=== PATIENT | female | born 1955 | race Caucasian/White ===

== ENCOUNTER → 2020-04-26 | Outpatient (CLI) | payer MEDICARE ==
--- NOTE | 2020-04-28 10:31 | MM ---
Reason for exam: screening (asymptomatic). Last mammogram was performed 5 years and 7 months ago. History: Patient is postmenopausal. Family history of breast cancer in sister. Physical Findings: A clinical breast exam by your physician is recommended on an annual basis and results should be correlated with mammographic findings. MG Screening Mammo w CAD Bilateral CC and MLO view(s) were taken. Prior study comparison: September 10, 2014, mammogram, performed at [facility]. There are scattered fibroglandular densities. There are benign appearing round calcifications in the right breast. There is chronic nodularity in the left breast upper outer quadrant. There is no discrete abnormality. ASSESSMENT: Benign, BI-RAD 2 RECOMMENDATION: Routine screening mammogram of both breasts in 1 year.
== END | disposition home or self-care (01) ==
LOC: RADMAMWWP 14:42
PROVIDERS: ATTEND Family Medicine
DX: Z12.31 Encounter for screening mammogram for malignant neoplasm of breast (principal)
CPT/HCPCS: 77067

== ENCOUNTER → 2022-10-24 | Outpatient (CLI) | payer MEDICARE ==
--- NOTE | 2022-10-25 08:27 | MM ---
Reason for Exam: Screening (asymptomatic). Last mammogram was performed 2 year(s) and 6 month(s) ago. Patient History: Menarche at age 9. First Full-Term at age 17. Hysterectomy at age 59. Postmenopausal. Sister had breast cancer. Risk Values: Cristal 5 year model risk: 3.5%. NCI Lifetime model risk: 11.5%. Prior Study Comparison: 09/10/2014 Screening Mammogram, [facility]. 04/26/2020 Bilateral Screening Mammogram, [facility]. Tissue Density: The breast tissue is heterogeneously dense. This may lower the sensitivity of mammography. Findings: Analyzed By CAD. Benign-appearing bilateral axillary lymph nodes are redemonstrated. Stable lobulated circumscribed 11 mm mass towards the left axilla. Occasional tiny benign-appearing round and linear calcification in the right breast is redemonstrated. There is no suspicious group of microcalcifications or new suspicious mass in either breast. Overall Assessment: Benign, BI-RAD 2 Management: Screening Mammogram of both breasts in 1 year. A clinical breast exam by your physician is recommended on an annual basis and results should be correlated with mammographic findings. Manage clinically occasional left-sided breast pain. Electronically signed and approved by: Jonny Marks M.D.
== END | disposition home or self-care (01) ==
LOC: RADMAMWWP 13:12
PROVIDERS: ATTEND Family Medicine
DX: Z12.31 Encounter for screening mammogram for malignant neoplasm of breast (principal); Z78.0 Asymptomatic menopausal state; Z80.3 Family history of malignant neoplasm of breast
CPT/HCPCS: 77063; 77067

== ENCOUNTER → 2024-01-09 | Outpatient (CLI) | payer MEDICARE ==
--- NOTE | 2024-01-17 20:09 | MM ---
Reason for Exam: Screening (asymptomatic). Last mammogram was performed 1 year(s) and 3 month(s) ago. Patient History: Menarche at age 9. First Full-Term at age 17. Hysterectomy at age 59. Postmenopausal. Sister had breast cancer. Risk Values: Cristal 5 year model risk: 3.5%. NCI Lifetime model risk: 10.6%. Prior Study Comparison: 09/10/2014 Screening Mammogram, [facility]. 04/26/2020 Bilateral Screening Mammogram, [facility]. 10/24/2022 Bilateral MG 3D screening mammo w/cad, [facility]. Tissue Density: There are scattered areas of fibroglandular density. Findings: Analyzed By CAD. Chronic nodularity left breast. There is no suspicious group of microcalcifications or new suspicious mass in either breast. Overall Assessment: Benign, BI-RAD 2 Management: Screening Mammogram of both breasts in 1 year. See note below in regards to the patient's increased 5 year Cristal score. Patient should continue monthly self-breast exams. A clinical breast exam by your physician is recommended on an annual basis. This exam should not preclude additional follow-up of suspicious palpable abnormalities. Note on Cristal scores and lifetime risk: 1. A Cristal score greater than 3% is considered moderate risk. If this is the case, consider specialist referral to assess eligibility for a risk reducing agent. 2. If overall lifetime risk for the development of breast cancer is 20% or higher, the patient may qualify for future screening with alternating mammogram and breast MRI. Electronically signed and approved by: Bobby Trevizo M.D. Radiologist
== END | disposition home or self-care (01) ==
LOC: RADMAMWWP 06:58
PROVIDERS: ATTEND Family Medicine
DX: Z12.31 Encounter for screening mammogram for malignant neoplasm of breast (principal); Z80.3 Family history of malignant neoplasm of breast; Z78.0 Asymptomatic menopausal state
CPT/HCPCS: 77063; 77067

== ENCOUNTER → 2024-04-14 | Day surgery (SDC) | payer MEDICARE ==
[~2024-04-14] MED LIST: ALPRAZolam 0.25 MG TAB PO PRN; ALPRAZolam 0.5 MG TAB PO PRN; NITROGLYCERIN SL TABS 0.4 MG TAB SUBLINGUAL PRN; RX INFO: IV CONTRAST WAS GIVEN 1 EACH MISC MISCELLANE PRN; SODIUM CHLORIDE 0.9% 1,000 ML IV SCH
[2024-04-14] MEDS: IV FLUID CONTINUATION 1,000 ML IV ONE (06:20)
[2024-04-14] MEDS: SODIUM CHLORIDE 0.9% 1,000 ML in EMPTY BAG 1 BAG IV SCH (06:20)
[2024-04-14 06:32] LABS: Glucose,Whole Blood 195 mg/dL (70-110)
[2024-04-14 06:33] LABS: HCT 37.6 % (34.0-46.0); HGB 12.2 gm/dL (11.4-16.0); MCH 30.5 pg (25.0-35.0); MCHC 32.5 g/dL (31.0-37.0); MCV 93.8 fL (80.0-100.0); Mean Platelet Volume 7.7; Platelet Count 312 k/uL (150-450); RBC 4.01 m/uL (3.80-5.40); RDW 13.1 % (11.5-15.5); WBC 10.3 k/uL (3.8-10.6)
[2024-04-14] MEDS: ASPIRIN 325 MG TAB PO ONE (06:40)
[2024-04-14 06:42] VITALS: TEMP 97.6
[2024-04-14 06:48] LABS: African American GFR (CKD) >90 (>60 ml/min/1.73 sqM); Anion Gap 8 mmol/L; Blood Urea Nitrogen 15 mg/dL (7-17); Calcium 9.5 mg/dL (8.4-10.2); Carbon Dioxide 26 mmol/L (22-30); Chloride 104 mmol/L (98-107); Glucose 203 mg/dL (74-99); Non-African American GFR(CKD) >90 (>60 ml/min/1.73 sqM); Potassium 4.5 mmol/L (3.5-5.1); Sodium 138 mmol/L (137-145)
[2024-04-14 06:58] LABS: Band Neutrophils % 2 %; Eosinophils # (M) 0.31 k/uL (0-0.7); Lymphocytes # (M) 4.94 k/uL (1.0-4.8); Monocytes # (M) 0.93 k/uL (0-1.0); Neutrophils % (M) 38 %; Nucleated Red Blood Cells 0 /100 WBC (0-0); Total Cells Counted 100
[2024-04-14] MEDS: HEPARIN SODIUM,PORCINE 10,000 UNIT in SODIUM CHLORIDE 0.9% 1,000 ML IRRIGATION PRN (07:26)
[2024-04-14] MEDS: HEPARIN SODIUM,PORCINE (1 ML) 2,500 UNIT in SODIUM CHLORIDE 0.9% 250 ML IRRIGATION PRN (07:26)
[2024-04-14] MEDS: fentaNYL (PF) 50 MCG/ML 2 ML AMP IVP ONE (07:37)
[2024-04-14] MEDS: MIDAZOLAM 2 MG/2 ML VIAL IVP ONE (07:37)
[2024-04-14] MEDS: LIDOCAINE 1% INJ 10MG/ML (20 ML MDV) SQ ONE (07:38)
[2024-04-14] MEDS: VERAPAMIL SYRINGE (5 MG/10 ML) INTRAARTER ONE (07:39)
[2024-04-14] MEDS: HEPARIN SODIUM 1,000 UN/ML (10ML VL) IV ONE (07:41)
[2024-04-14] MEDS: IOPAMIDOL-370 100ML BTL INJ ONE (07:54)
--- NOTE | 2024-04-14 07:56 | P.PCN ---
Date of Procedure: 04/14/24 Operative Findings: CARDIAC CATHETERIZATION PERFORMING PHYSICIAN: Tod Wolfe MD, RPVI PROCEDURE PERFORMED: 1. Selective right and left coronary angiogram 2. Left heart catheterization 3. Ultrasound-guided access of the right radial artery INDICATION: Symptomatic 68-year-old female patient with diabetes and hypertension and dyslipidemia who underwent myocardial perfusion imaging stress that showed an inferior ischemia COMPLICATION: None APPROACH: Right radial artery LEVEL OF SEDATION: Moderate with a sedation length of 13 minutes PROCEDURE DESCRIPTION: After obtaining an informed consent, the patient was brought to cardiac manager labor relations. Local anesthesia was performed using lidocaine subcutaneously. The right radial artery was cannulated using Seldinger technique, the guidewire passed easily, following that we advanced a 5-Estonian sheath dilator assembly, the wire and dilator were removed and sheath was flushed. Following that, 2 mg of verapamil along with 5000 unit heparin were given. Selective right and left coronary angiogram using a 6-Estonian JR4 and JL 3.5 catheters. Following that we did left heart catheterization using 6-Estonian pigtail catheter. The procedure was completed there was no complication. SELECTIVE CORONARY ANGIOGRAM: The right coronary artery: Large-caliber vessel and a dominant vessel with mild disease in the midportion Left main: Is angiographically normal The left circumflex: Large-caliber vessel nondominant vessel appears to be also angiographically normal The left anterior descending artery: Large-caliber vessel and appears to be free from any high-grade stenosis. Gives rise into diagonal branch which seems to have mild disease only HEMODYNAMICS: The LVEDP was 11 mmHg with no significant gradient across aortic valve CONCLUSION: 1. Mild nonobstructive CAD 2. Normal left-sided filling pressure POSTPROCEDURE MANAGEMENT: Medical treatment
[2024-04-14] MEDS: glipiZIDE 10 MG TAB PO STA (08:45)
[2024-04-14] MEDS: PIOGLITAZONE 30 MG TAB PO STA (08:45)
[2024-04-14 10:11] VITALS: PULSE 58
[2024-04-14 10:13] VITALS: BP 123/56; RESP 16
[2024-04-14 11:20] LABS: Glucose,Whole Blood 229 mg/dL (70-110)
== END ==
LOC: CATHCVL 05:38
PROVIDERS: ATTEND Internal Medicine Interventional Cardiology
CPT/HCPCS: 80048; 85025; 93458

== ENCOUNTER → 2024-11-10 | Outpatient (CLI) | payer MEDICARE | END | disposition home or self-care (01) | LOC: RADMAMWWP 09:06 | PROVIDERS: ATTEND Family Medicine | DX: Z53.9 Procedure and treatment not carried out, unspecified reason (principal) ==